=== PATIENT | female | born 2000 | race Two or more races ===

== ENCOUNTER 2021-04-19 19:48 | Emergency (ER) | payer OTHER ==
[~2021-04-19] VITALS: Ht 149.9 cm; Wt 56.7 kg
[2021-04-19] MEDS ORDERED: PEPCID AC20 MG PO (23:53)
[2021-04-19] MEDS ORDERED: LEVSIN/SL0.125 MG SL (23:53)
== END 2021-04-20 | disposition home or self-care (01) ==
LOC: ER 19:48
DX: K52.9 Noninfective gastroenteritis and colitis, unspecified (principal)

== ENCOUNTER 2021-06-13 07:55 | Emergency (ER) | payer OTHER ==
[~2021-06-13] VITALS: Ht 149.9 cm; Wt 56.7 kg
[~2021-06-13 07:55] MED LIST: LEVSIN/SL0.125 MG SL; PEPCID AC20 MG PO
[2021-06-13] MEDS ORDERED: NORFLEX100MG PO (09:58)
[2021-06-13] MEDS ORDERED: KETO10TA2 PO (09:58)
== END 2021-06-13 10:09 | disposition home or self-care (01) ==
LOC: ER 07:55
DX: M54.2 Cervicalgia (principal); M54.5 Low back pain

== ENCOUNTER 2021-10-09 09:55 | Emergency (ER) | payer OTHER ==
[~2021-10-09] VITALS: Ht 149.9 cm; Wt 65.8 kg
[~2021-10-09 09:55] MED LIST changes: +KETO10TA2 PO; +NORFLEX100MG PO
== END 2021-10-09 19:02 | disposition home or self-care (01) ==
LOC: ER 09:55
DX: U07.1 COVID-19 (principal); B34.8 Other viral infections of unspecified site

== ENCOUNTER 2024-10-17 03:05 | Emergency (ER) | payer OTHER ==
[~2024-10-17] VITALS: Ht 149.9 cm; Wt 70.3 kg
[2024-10-17] MEDS ORDERED: FAMOTIDINE/PF 20 MG in 0.9 % SODIUM CHLORIDE 8 ML IV PUSH STA (03:54)
[2024-10-17] MEDS ORDERED: ONDANSETRON HCL 2 MG/ML VIAL IV ONE (04:00)
[2024-10-17] MEDS ORDERED: 0.9 % SODIUM CHLORIDE 1,000 ML IV SCH (04:00)
[2024-10-17] MEDS ORDERED: KETOROLAC TROMETHAMINE 30 MG VIAL IV ONE (04:00)
[2024-10-17] MEDS ORDERED: ONDANSETRON HCL 2 MG/ML VIAL ONE (04:06)
[2024-10-17] MEDS ORDERED: KETOROLAC TROMETHAMINE 60 MG VIAL IM ONE (04:06)
[2024-10-17] MEDS ORDERED: FAMOTIDINE/PF 20 MG/2 ML VIAL ONE (04:07)
[2024-10-17 05:18] LABS: HEMATOCRIT 43.2 % (36.0-45.00); HEMOGLOBIN 14.6 g/dL (12.0-15.00); MEAN CELL VOLUME 86.1 fL (80.00-100.00); MEAN CORPUSCULAR HEMOGLOBIN 29.1 pg (27.00-32.0); MEAN CORPUSCULAR HGB CONC 33.8 g/dl (32.0-36.0); PLATELET COUNT 277 K/uL (150-450); RED BLOOD COUNT 5.02 M/uL (4.00-6.00); RED CELL DISTRIBUTION WIDTH 13.3 % (11.5-14.5)
[2024-10-17 05:50] LABS: ALBUMIN 3.6 gm/dL (3.4-5.0); BILIRUBIN TOTAL 0.45 mg/dL (0.3-1.2); CALCIUM 8.6 mg/dL (8.5-10.1); CREATININE SERUM 0.49 mg/dL (0.55-1.02); GFR 155.16; GLOBULINA 3.8 G/DL (2.4-3.5); POTASSIUM 4.06 mEq/L (3.5-5.1); TOTAL PROTEIN 7.4 gm/dL (6.4-8.2)
[2024-10-17] MEDS ORDERED: ZOFRAN8 MG PO (07:26)
== END 2024-10-17 07:47 | disposition home or self-care (01) ==
LOC: ER 03:07
PROVIDERS: General Practice
DX: K52.89 Other specified noninfective gastroenteritis and colitis (principal); Z88.0 Allergy status to penicillin; R11.2 Nausea with vomiting, unspecified

== ENCOUNTER 2025-05-18 20:29 | Emergency (ER) | payer OTHER ==
[~2025-05-18] VITALS: Ht 149.9 cm; Wt 63.5 kg
[~2025-05-18 20:29] MED LIST changes: +ZOFRAN8 MG PO
[2025-05-18] MEDS ORDERED: KETOROLAC TROMETHAMINE 30 MG VIAL ONE (20:50)
[2025-05-18] MEDS ORDERED: FAMOTIDINE/PF 20 MG/2 ML VIAL ONE ×2 (20:50→21:13)
[2025-05-18] MEDS ORDERED: 0.9 % SODIUM CHLORIDE 1,000 ML IV ONE (21:00)
[2025-05-18] MEDS ORDERED: KETOROLAC TROMETHAMINE 30 MG VIAL IV ONE (21:00)
[2025-05-18] MEDS ORDERED: FAMOtidine 10 MG/ML (4ML VIAL) IV ONE (21:00)
[2025-05-18 21:20] LABS: BASO % 0.3 % (0.1-1.2); EOS # 0.05 (0.04-0.54); EOS % 0.3 % (0.7-7.0); LYMPH # 2.12 (1.18-3.74); LYMPH % 12.7 % (19.3-53.1); MEAN PLATELET VOLUME 10.10 fl (9.4-12.4); MONO # 0.85 (0.24-0.82); MONO % 5.1 % (4.7-12.5); NEUT # 13.57 (1.56-6.13); NEUT % 81.2 % (34.0-71.1); RED CELL DISTRIBUTION WIDTH 12.4 % (11.6-14.4)
[2025-05-18 21:39] LABS: INR 1.0
[2025-05-18 21:46] LABS: ALT/SGPT 31 U/L (12-78); AST/SGOT 12 U/L (15-37); BILIRUBIN TOTAL 0.35 mg/dL (0.3-1.2); BUN CREA RATIO 21 (7.0-25.0); CREATININE SERUM 0.52 mg/dL (0.55-1.02); GFR 143.68; GLOBULINA 3.8 G/DL (2.4-3.5); GLUCOSE FASTING 93 mg/dL (65-100); OSMOLALITY SERUM 278 MOSM/KG (275-295)
[2025-05-18 21:47] LABS: HCG QUANTITATIVE < 1 mUI/mL (1-3)
[2025-05-18 22:24] LABS: URINE APPEARANCE Cloudy; URINE BILIRRUBIN Negative (NEGATIVE); URINE BLOOD Negative; URINE COLOR Yellow; URINE GLUCOSE Negative (NEGATIVE); URINE KETONE Trace (NEGATIVE); URINE LEUKOCYTE Negative; URINE NITRATE Negative; URINE PROTEIN Trace (NEGATIVE); URINE UROBILINOGEN 1.0 E.U./dl
[2025-05-18 22:28] LABS: URINE BACTERIA 2835.4 uL (0.0-1933); URINE EPITHELIAL CELLS 53.8 uL (0.0-38.8); URINE RBC 11.5 uL (0.0-20.8); URINE WBC 15.2 uL (0.0-23.2)
[2025-05-18 22:32] LABS: URINE CAST 0.00 uL (0.0-1.40)
[2025-05-18] MEDS ORDERED: CIPROFLOXACIN IN 5 % DEXTROSE 400 MG/200 ML PIGGYBAG IV ONE ×2 (22:39→22:45)
[2025-05-18] MEDS ORDERED: ONDANSETRON HCL 2 MG/ML VIAL ONE (22:39)
[2025-05-18] MEDS ORDERED: ONDANSETRON HCL 2 MG/ML VIAL IV ONE (22:45)
[2025-05-18] MEDS ORDERED: TAMSULOSIN HCL 0.4 MG CAP PO ONE ×2 (23:33→23:45)
[2025-05-18] MEDS ORDERED: MORPHINE SULFATE 4 MG/ML VIAL IV ONE (23:45)
[2025-05-19] MEDS ORDERED: KETOROLAC TROMETHAMINE 30 MG VIAL ONE (01:41)
[2025-05-19] MEDS ORDERED: KETOROLAC TROMETHAMINE 30 MG VIAL IV STA (01:42)
[2025-05-19] MEDS ORDERED: CIPRO500 MG PO (03:01)
[2025-05-19] MEDS ORDERED: KETO10TA2 PO (03:01)
== END 2025-05-19 03:05 ==
LOC: ER 21:04
PROVIDERS: General Practice
DX: N20.0 Calculus of kidney (principal); R10.31 Right lower quadrant pain; R10.9 Unspecified abdominal pain; Z88.0 Allergy status to penicillin
CPT/HCPCS: 36415; 74177; Q9965